=== PATIENT | female | born 1995 | race Caucasian/White ===

== ENCOUNTER 2018-03-14 09:27 | Emergency (ER) | payer BC ==
[~2018-03-14] VITALS: Ht 165.1 cm; Wt 61.4 kg
[2018-03-14 09:29] VITALS: TEMP 96.8
[2018-03-14 10:58] VITALS: BP 126/79; PULSE 68
== END 2018-03-14 10:59 | disposition home or self-care (01) ==
LOC: COL.ER 09:27
DX: T78.3XXA Angioneurotic edema, initial encounter (principal); Z88.2 Allergy status to sulfonamides
CPT/HCPCS: J2930; J7030